=== PATIENT | male | born 1950 | race Caucasian/White ===

== ENCOUNTER 2017-12-07 06:24 | Day surgery (SDC) | payer OTHER, MEDICARE ==
[2017-12-02 11:12] VITALS: BMI 28.8
[2017-12-07] MEDS ORDERED: POVIDONE-IODINE 5% OPHTHALMIC PREP 30 ML SOLUTION ONE (07:15)
[2017-12-07] MEDS ORDERED: THROMBIN (BOVINE) 5,000 UNIT VIAL TP ONE (07:15)
[2017-12-07] MEDS ORDERED: LIDOCAINE 1%/EPI 1:100000 (20 ML MULTI DOSE VIAL) ONE (07:15)
[2017-12-07] MEDS ORDERED: OXYMETAZOLINE 0.05% NASAL SOLUTION 15 ML BOTTLE NS ONE (07:15)
[2017-12-07] MEDS ORDERED: TETRACAINE 0.5% OPHTH SOLN 2 ML BOTTLE ONE (07:15)
[2017-12-07] MEDS ORDERED: BUPIVACAINE HCL/PF 0.5% (5MG/ML) 10 ML VIAL ONE (07:15)
[2017-12-07] MEDS ORDERED: MIDAZOLAM HCL 2 MG/2 ML SINGLE DOSE VIAL ONE (07:21)
[2017-12-07] MEDS ORDERED: BACITRACIN 3.5 GM OPTHALMIC OINT TUBE ONE (07:21)
[2017-12-07] MEDS ORDERED: BSS (NA/CA/MG/K) BALANCED SALT SOLUTION OPHTH SOLN 15 ML BOTTLE ONE (07:22)
[2017-12-07] MEDS ORDERED: PROPOFOL 20 ML ONE ×2 (07:31)
[2017-12-07] MEDS ORDERED: SUCCINYLCHOLINE CHLORIDE 200 MG/10 ML VIAL ONE (07:31)
[2017-12-07] MEDS ORDERED: ceFAZolin SODIUM 1 GM VIAL ONE (08:05)
[2017-12-07] MEDS ORDERED: DEXAMETHASONE SOD PHOSPHATE 4 MG/1 ML VIAL ONE (08:36)
[2017-12-07] MEDS ORDERED: ONDANSETRON 4 MG/2 ML VIAL ONE (08:36)
[2017-12-07] MEDS ORDERED: DESFLURANE GAS 240 ML BOTTLE IH ONE (09:13)
[2017-12-07] MEDS ORDERED: ONDANSETRON 4 MG/2 ML VIAL IVPUSH PRN (09:56)
[2017-12-07] MEDS ORDERED: oxyCODONE HCL 5 MG TABLET PO PRN (09:56)
[2017-12-07] MEDS ORDERED: LACTATED RINGERS SOLUTION 1,000 ML IV SCH (10:00)
[2017-12-07] MEDS ORDERED: oxyCODONE HCL 5 MG TABLET ONE (11:11)
[2017-12-07 11:46] VITALS: TEMP 98.2
[2017-12-07 12:10] VITALS: BP 141/84; PULSE 82
--- NOTE | 2017-12-07 12:44 | OP ---
DATE OF OPERATION: 12/07/2017 SURGEON: Colin Aguila MD PREOPERATIVE DIAGNOSIS: Canaliculitis, right lower lid, with chronic discharge and nasal lacrimal obstruction. POSTOPERATIVE DIAGNOSIS: Canaliculitis, right lower lid, with chronic discharge and nasal lacrimal obstruction. PROCEDURE: 1. Examination under anesthesia. 2. Punctoplasty, right lower lid, followed by canalicular exploration with curettage and removal of lacrimal foreign body concretions. 3. Nasolacrimal irrigation, which was obstructed through the right upper canaliculus and seemingly patent through the lower canaliculus after curettage, and it was felt the system could not be intubated with a pigtail probe, and it was felt that in order to correct the upper canalicular obstruction, DCR (dacryocystorhinostomy) was indicated to prevent recurrence. Therefore, a tear-trough incision was marked from the medial canthus curving around on the tear trough, and 2% Xylocaine with 1:100,000 epinephrine and 2.5% Marcaine infiltrated until mixture was injected along the tear trough and in the lateral wall of the nose and nasal third of the upper and lower lids. OPERATION REPORT: Patient was brought to the operating room, placed on the operating room table. Time-out had been performed. The area had been prepped and draped in the usual sterile fashion, and the right nostril had been packed with cottonoids moistened with Afrin. The continuation of surgery was with the DCR. The tear-trough incision was incised, and the skin was found to be scarred right down to the lateral wall of the nose. This had to be dissected free from the lateral wall of the nose in order to spread the tissues apart. There was significant cicatricial change. Dissection was carried down through multiple layers until the anterior lacrimal crest was obtained. The anterior lacrimal crest was intact in the inferior half. In the superior half, the anterior lacrimal crest had been removed from a prior surgery, but there was seemingly no functional communication between the lacrimal sac and the nose, even though there had been some bony removal. Lacrimal fossa itself was completely intact without penetration. The only part of the bone that had been removed was the superior-anterior lacrimal crest just medial to the medial canthal tendon. Anterior medial canthal tendon and periosteum were incised, and periosteum reflected laterally, exposing intact lacrimal fossa. The posterior lacrimal sac fossa was penetrated with hemostat and upbiting Kerrison rongeurs were used to create an osteotomy. Further administration of anesthetic was now performed with 2% Xylocaine with 1:100,000 epinephrine to anesthetize the mucosa of the nose for hemostasis, and then a large osteotomy centered on the lacrimal fossa was created with upbiting Kerrison rongeurs. Middle turbinate was encountered, and therefore, partial middle turbinectomy after injection with anesthetic was then performed removing a part of the turbinate that would be approximating the internal opening of the lacrimal sac. The upper and lower puncta, the lower one had been previously curettaged with foreign body removal now intubated with a probe, and this tented the medial wall of the sac medially, and the sac was opened from the lower punctum with a 12 blade and anterior and posterior lacrimal sacs were created. The superior portion of the sac appeared scarred and this opened as much as possible, and then the upper punctum was intubated with a probe, and this probe would not pass into the sac due to the scar tissue, and therefore, the internal surface of the sac was examined and any cicatricial change around the internal opening of the upper canaliculus was removed. The scar itself was submitted for pathologic study, and the posterior lacrimal sac flap was submitted for pathologic study, and now there was a common internal canaliculoplasty was performed in order to relieve any scar tissue that was preventing the probes passage, and after this, the probe passed freely from the upper and lower canaliculi into the medial wall of the sac and into the sac proper. Hemostasis was achieved with cottonoids moistened with thrombin in the nose and in the packing. Antibiotic irrigation was carried out throughout the case, and postoperatively, the posterior lacrimal sac flap was looped posteriorly. The system was intubated with [place] tubes, which were treated to the right external nares without any restriction. The tubes moved very freely through the system when they were advanced back and forth. The anterior lacrimal sac flap was now secured to the periosteum anterior to the osteotomy site with mattress 4-0 chromic sutures and interrupted 4-0 chromic suture. The subcuticular tissues were closed with 5-0 chromic suture after antibiotic irrigation. The skin was closed with a running 6-0 plain suture with plastic technique. The stents were removed from the probes, and the stents were tied with locking knot and then secured to the right internal naris with a single 6-0 Prolene with minimal tension on the loop in the right medial canthus. The endoscope was then introduced and demonstrated excellent clearance of the internal ostial site from the turbinate and from the septum with perfectly placed silicone stents with no obstruction. Afrin was sprayed in the nose, Bacitracin ointment was placed on the sutures, and the patient was extubated and taken to the recovery room in stable condition. COLIN AGUILA M.D. CHRIS/[id number]
--- NOTE | 2017-12-10 14:17 | PATH ---
Surgical Pathology Report Patient Name: FREIDA PETERSON [facility]. Rec. #: [id number] /Age/Gender: 1950 (Age: 67) / M Account: [id number] Location: [facility] Taken: 12/07/2017 Received: 12/07/2017 Reported: 12/10/2017 Physicians: Alex Figueroa Specimen(s) Received A: TISSUE RIGHT TEAR DUCT B: SCARRING AND TEAR SAC RIGHT EYE C: LACRIMAL SAC BIOPSY RIGHT EYE Clinical History Dacryocystitis right eye Final Diagnosis A. tear duct, right, tissue, BIOPSY: Granulation tissue with marked acute and chronic inflammation and exudate. B. tear sac and scarring, right eye, BIOPSY: Lacrimal sac tissue showing DENSE fibrosis. C. lacrimal sac, right eye, biopsy: Lacrimal sac tissue showing denudation of surface epithelium, dense fibrosis and scant exudate. Electronically Signed Digna Thompson M.D. Gross Description A. Received in formalin labeled "tissue right tear duct," is a 0.3 x 0.2 x 0.1 cm aggregate of orosco brown soft tissue fragments. The formalin is filtered and the specimen is entirely submitted in one cassette. B. Received in formalin labeled "scarring and tear sac right eye," is a 0.2 cm in greatest dimension orosco tissue fragment. The specimen is submitted in toto in one cassette. C. Received in formalin labeled "lacrimal sac biopsy right eye," is a 0.2 cm greatest dimension orosco soft tissue fragment. The specimen is submitted in toto in one cassette. 12/08/201712/08/2017
== END 2017-12-07 12:45 | disposition home or self-care (01) ==
LOC: FASU 06:24
PROVIDERS: ATTEND Ophthalmology
PROC: 087X0ZZ Dilation of Right Lacrimal Duct, Open Approach (ICD-10-PCS; 2017-12-07)
PROC: 081X0Z3 Bypass Right Lacrimal Duct to Nasal Cavity, Open Approach (ICD-10-PCS; principal; 2017-12-07 08:19)
DX: H04.42 Chronic lacrimal canaliculitis (principal); H04.511 Dacryolith of right lacrimal passage
CPT/HCPCS: 87070; 87205; 88304-TC

== ENCOUNTER 2019-08-28 05:50 | Day surgery (SDC) | payer OTHER, MEDICARE ==
[2019-08-21 18:10] VITALS: BMI 28.9
[2019-08-28] MEDS ORDERED: LIDOCAINE HCL 2% (20ML MULTI-DOSE VIAL) NR ONE (07:07)
[2019-08-28] MEDS ORDERED: BUPIVACAINE HCL/PF 0.5% (5MG/ML) 10 ML VIAL ONE (07:07)
[2019-08-28] MEDS ORDERED: MIDAZOLAM HCL 2 MG/2 ML SINGLE DOSE VIAL ONE (07:32)
[2019-08-28] MEDS ORDERED: SUCCINYLCHOLINE CHLORIDE 200 MG/10 ML SYRINGE ONE (07:32)
[2019-08-28] MEDS ORDERED: PROPOFOL 20 ML ONE (07:32)
[2019-08-28] MEDS ORDERED: ceFAZolin SODIUM 1 GM VIAL ONE (07:42)
[2019-08-28] MEDS ORDERED: BUPIVACAINE HCL/PF 0.5% (5 MG/ML) 30 ML VIAL IJ ONE (07:45)
[2019-08-28] MEDS ORDERED: LIDOCAINE HCL 2% (50ML VIAL) INF ONE (07:45)
[2019-08-28] MEDS ORDERED: oxyCODONE HCL 5 MG TABLET PO PRN (08:13)
[2019-08-28] MEDS ORDERED: ONDANSETRON 4 MG/2 ML VIAL IVPUSH PRN (08:13)
[2019-08-28] MEDS ORDERED: LACTATED RINGERS SOLUTION 1,000 ML IV SCH (08:15)
[2019-08-28 10:09] VITALS: BP 128/82; PULSE 63; TEMP 97.6
--- NOTE | 2019-08-28 10:29 | OP ---
DATE OF OPERATION: 08/28/2019 PREOPERATIVE DIAGNOSIS: Hammer toe, right 2nd toe. POSTOPERATIVE DIAGNOSIS: Hammer toe, right 2nd toe. SURGEON: Guero Alvarez DPM NEWSPAPER PRESS OPERATOR APPRENTICE: None. ANESTHESIA: Local with a total of 8 mL of a 50/50 mix of 0.5% Sensorcaine and 2% plain lidocaine with IV sedation. OPERATION IN DETAIL: The patient was taken to the operating room and placed on the operating room table in the supine position. Local anesthesia was initiated prior to prepping and draping. After local anesthesia initiated, prepping and draping were completed. The extremity was elevated for a full 3 minutes, and the ankle tourniquet was inflated to 250 mmHg. The extremity was then lowered to the table and draping was completed. Attention was directed to the proximal interphalangeal joint of the 2nd toe where 2 curvilinear incisions 2 cm were made excising a wedge of skin. At this point, contracted proximal interphalangeal joint was noted. Transverse incision was effectively made through the extensor tendon complex exposing the head of the proximal phalanx where at the level of the surgical neck an arthroplasty was performed. The area was then rasped. The extensor tendon was reapproximated and closed with No. 3-0 Vicryl. Skin was reapproximated and closed with No. 4-0 nylon. A dry, sterile dressing was applied to the operative foot. Tourniquet was released, and the capillary filling time was noted to be instantaneous. LYDIA BAIG/[id number]
--- NOTE | 2019-08-31 16:02 | PATH ---
Surgical Pathology Report Patient Name: FREIDA PETERSON Med. Rec. #: [id number] /Age/Gender: 1950 (Age: 68) / M Account: [id number] Location: [facility] Taken: 08/28/2019 Received: 08/28/2019 Reported: 08/31/2019 Physicians: Tiffany Alvarez Specimen(s) Received BONE AND SKIN OF THE RIGHT FOOT Clinical History Right second toe hammertoe Final Diagnosis BONE AND SKIN RIGHT FOOT, EXCISION: PORTION OF BONE WITH FATTY MARROW SHOWING FOCAL DEGENERATIVE CHANGE. SEGMENT OF SKIN WITH NO SIGNIFICANT PATHOLOGIC CHANGE. Electronically Signed Juju Carney M.D. Gross Description Received in formalin labeled "bone and skin right foot," is a 1.4 x 0.7 x 0.6 cm orosco-yellow portion of bone. Also received within the same container is a 2.5 x 0.6 cm orosco, elliptical, unoriented portion of skin. No epidermal lesions are identified. Manager Cancer sections are submitted in one cassette, following decalcification. /08/30/2019 saudi08/30/2019
== END 2019-08-28 10:09 | disposition home or self-care (01) ==
LOC: FASU 05:50
PROVIDERS: ATTEND Podiatrist
PROC: 0SRP0JZ Replacement of Right Toe Phalangeal Joint with Synthetic Substitute, Open Approach (ICD-10-PCS; principal; 2019-08-28 07:57)
DX: M20.41 Other hammer toe(s) (acquired), right foot (principal)
CPT/HCPCS: 73630-TC-RT-FY

== ENCOUNTER 2019-11-02 08:00 | Day surgery (SDC) | payer OTHER, MEDICARE ==
[2019-11-02] MEDS ORDERED: LIDOCAINE HCL/PF 2% SDV 5ML VIAL ONE ×2 (08:17→08:58)
[2019-11-02] MEDS ORDERED: PROPOFOL 20 ML ONE ×3 (08:18)
[2019-11-02 08:39] VITALS: BMI 29.2
[2019-11-02 09:28] VITALS: TEMP 97.5
[2019-11-02 10:09] VITALS: BP 136/85; PULSE 78
--- NOTE | 2019-11-06 12:28 | PATH ---
Surgical Pathology Report Patient Name: FREIDA PETERSON [facility]. Rec. #: [id number] /Age/Gender: 1950 (Age: 69) / M Account: [id number] Location: [facility] Taken: 11/02/2019 Received: 11/03/2019 Reported: 11/06/2019 Physicians: Kian Perez M.D. Specimen(s) Received A: BX SECOND PORTION DUODENUM B: BX GASTRIC ANTRUM C: BX POLYP LEFT COLON Clinical History GERD, history of polyps Postoperative diagnosis: Gastritis, diverticulosis, colon polyp Final Diagnosis A. DUODENUM, SECOND PORTION, BIOPSY: DUODENAL MUCOSA WITH NONSPECIFIC CHRONIC INFLAMMATION AND FOCALLY INCREASED INTRAEPITHELIAL LYMPHOCYTES. B. STOMACH, ANTRUM, BIOPSY: GASTRIC ANTRAL MUCOSA WITH REACTIVE GASTROPATHY. IMMUNOSTAIN FOR H. PYLORI IS NEGATIVE. C. COLON, LEFT, BIOPSY: TUBULAR ADENOMA. Comment: The findings in specimen A are nonspecific, but can be seen in gluten sensitive enteropathy (celiac sprue). Recommend correlation with clinical findings and followup as clinically indicated. Electronically Signed Ramses Nunez M.D. Gross Description A. Received in formalin, labeled "biopsy second portion of duodenum" are 3 orosco, irregular portions of soft tissue ranging from 0.2-0.3 cm. in greatest dimension. The specimens are submitted in toto in one cassette. B. Received in formalin, labeled "biopsy gastric antrum" are 3 orosco, irregular portions of soft tissue ranging from 0.1-0.3 cm. in greatest dimension. The specimens are submitted in toto in one cassette. C. Received in formalin, labeled "biopsy polyp left colon" is a orosco, irregular portion of soft tissue measuring 1.0 cm. in greatest dimension. The specimen is submitted in toto in one cassette. DL/11/03/2019 saudi/11/03/2019
== END 2019-11-02 10:05 | disposition home or self-care (01) ==
LOC: FASU-ENDO 08:00
PROVIDERS: ATTEND Internal Medicine Gastroenterology
PROC: 0DB98ZX Excision of Duodenum, Via Natural or Artificial Opening Endoscopic, Diagnostic (ICD-10-PCS; 2019-11-02)
PROC: 0DB68ZX Excision of Stomach, Via Natural or Artificial Opening Endoscopic, Diagnostic (ICD-10-PCS; 2019-11-02)
PROC: 0DBM8ZX Excision of Descending Colon, Via Natural or Artificial Opening Endoscopic, Diagnostic (ICD-10-PCS; principal; 2019-11-02 08:52)
DX: Z12.11 Encounter for screening for malignant neoplasm of colon (principal); D12.4 Benign neoplasm of descending colon; K57.30 Diverticulosis of large intestine without perforation or abscess without bleeding; K29.80 Duodenitis without bleeding; K31.9 Disease of stomach and duodenum, unspecified
CPT/HCPCS: 88305-TC; 88342-TC

== ENCOUNTER 2023-06-29 06:16 | Day surgery (SDC) | payer OTHER, MEDICARE ==
[2023-06-22 13:07] VITALS: BMI 28.5
[2023-06-29] MEDS ORDERED: ERYTHROMYCIN 0.5% OPHTHALMIC OINTMENT 3.5 GM TUBE ONE (07:07)
[2023-06-29] MEDS ORDERED: OXYMETAZOLINE 0.05% NASAL SOLUTION 15 ML BOTTLE NS ONE (07:07)
[2023-06-29] MEDS ORDERED: TETRACAINE 0.5% OPHTH SOLN 2 ML BOTTLE ONE (07:07)
[2023-06-29] MEDS ORDERED: ceFAZolin SODIUM 1 GM VIAL ONE ×2 (07:07→10:37)
[2023-06-29] MEDS ORDERED: BUPIVACAINE HCL/PF 0.5% (5MG/ML) 10 ML VIAL ONE (07:08)
[2023-06-29] MEDS ORDERED: THROMBIN (BOVINE) 5,000 UNIT VIAL TP ONE ×2 (07:08→07:32)
[2023-06-29] MEDS ORDERED: LIDOCAINE 1%-EPI 1:100,000 30 ML MDV IJ ONE ×2 (07:08→08:05)
[2023-06-29] MEDS ORDERED: POVIDONE-IODINE 5% OPHTHALMIC PREP 30 ML SOLUTION ONE (07:17)
[2023-06-29] MEDS ORDERED: MIDAZOLAM HCL 2 MG/2 ML SINGLE DOSE VIAL ONE (07:22)
[2023-06-29] MEDS ORDERED: SEVOFLURANE 250 ML BTL ONE (07:29)
[2023-06-29] MEDS ORDERED: PROPOFOL 20 ML ONE (07:29)
[2023-06-29] MEDS ORDERED: CLINDAMYCIN 600MG PREMIX IVPB 600 MG/50 ML BAG IVPB ONE (08:21)
[2023-06-29] MEDS ORDERED: DEXAMETHASONE SOD PHOSPHATE 4 MG/1 ML VIAL ONE ×2 (08:21→10:37)
[2023-06-29] MEDS ORDERED: ONDANSETRON 4 MG/2 ML VIAL ONE ×3 (08:21→10:37)
[2023-06-29] MEDS ORDERED: GENTAMICIN SO4 80 MG/2 ML VIAL ONE (08:34)
[2023-06-29] MEDS ORDERED: BSS (NA/CA/MG/K) BALANCED SALT SOLUTION OPHTH SOLN 15 ML BOTTLE ONE (08:59)
[2023-06-29] MEDS ORDERED: MITOMYCIN 0.02% EYE DROPS - 2ML VIAL IO ONE (09:00)
[2023-06-29] MEDS ORDERED: ONDANSETRON 4 MG/2 ML VIAL IVPUSH PRN (09:47)
[2023-06-29] MEDS ORDERED: oxyCODONE HCL 5 MG TABLET PO PRN (09:47)
[2023-06-29] MEDS ORDERED: LACTATED RINGERS SOLUTION 1,000 ML IV SCH (10:00)
[2023-06-29] MEDS ORDERED: FENTANYL CITRATE/PF 50 MCG/ML VIAL ONE (10:12)
[2023-06-29] MEDS ORDERED: oxyCODONE HCL 5 MG TABLET ONE (10:54)
[2023-06-29] MEDS ORDERED: oxyCODONE HCL 5 MG TABLET PO ONE (10:55)
[2023-06-29 11:07] VITALS: PULSE 78; RESP 16; TEMP 98.3
[2023-06-29 12:02] VITALS: BP 143/75
== END 2023-06-29 12:15 | disposition home or self-care (01) ==
LOC: FASU 06:16
PROVIDERS: ATTEND Ophthalmology
PROC: 081X0Z3 Bypass Right Lacrimal Duct to Nasal Cavity, Open Approach (ICD-10-PCS; principal; 2023-06-29 08:20)
DX: H04.551 Acquired stenosis of right nasolacrimal duct (principal)
CPT/HCPCS: 94760

== ENCOUNTER 2025-05-22 08:22 | Day surgery (SDC) | payer OTHER, MEDICARE ==
[2025-05-17 13:49] VITALS: BMI 28.8
[2025-05-22] MEDS ORDERED: ERYTHROMYCIN 0.5% OPHTHALMIC OINTMENT 3.5 GM TUBE ONE (10:40)
[2025-05-22] MEDS ORDERED: BUPIVACAINE HCL/PF 0.5% (5MG/ML) 10 ML VIAL ONE (10:40)
[2025-05-22] MEDS ORDERED: POVIDONE-IODINE 5% OPHTHALMIC PREP 30 ML SOLUTION ONE (10:40)
[2025-05-22] MEDS ORDERED: TETRACAINE 0.5% OPHTH SOLN 2 ML BOTTLE ONE (10:40)
[2025-05-22] MEDS ORDERED: LIDOCAINE 1%/EPI 1:100000 (20 ML MULTI DOSE VIAL) ONE (10:40)
[2025-05-22] MEDS ORDERED: LACTATED RINGERS SOLUTION 1,000 ML IV SCH (10:45)
[2025-05-22] MEDS ORDERED: LIDOCAINE HCL 2% 100 MG/5 ML DISP.SYRIN ONE (11:03)
[2025-05-22] MEDS ORDERED: PROPOFOL 20 ML ONE ×2 (11:04→11:28)
[2025-05-22] MEDS ORDERED: ePHEDrine SULFATE 50 MG/1 ML AMPULE ONE (11:46)
[2025-05-22 14:03] VITALS: RESP 18
[2025-05-22 15:02] VITALS: BP 121/68; PULSE 69
[2025-05-22 15:11] VITALS: TEMP 97
== END 2025-05-22 14:30 | disposition home or self-care (01) ==
LOC: FASU 08:22
PROVIDERS: ATTEND Ophthalmology
PROC: 08BNXZZ Excision of Right Upper Eyelid, External Approach (ICD-10-PCS; principal; 2025-05-22 11:41)
DX: H02.051 Trichiasis without entropion right upper eyelid (principal)
CPT/HCPCS: 94760